=== PATIENT | male | born 1995 | race Caucasian/White ===

== ENCOUNTER 2018-03-04 16:05 | Emergency (ER) | payer OTHER ==
[2018-03-04 16:16] VITALS: BP 120/78; O2SAT 99
[2018-03-04] MEDS ORDERED: TORAdol 30 mg Injection IM ONE (16:25)
[2018-03-04] MEDS ORDERED: Cyclobenzaprine 10 MG PO ONE (16:26)
[2018-03-04] MEDS ORDERED: Cyclobenzaprine 10 MG ONE (16:28)
[2018-03-04] MEDS ORDERED: TORAdol 30 mg Injection ONE (16:28)
--- NOTE | 2018-03-04 16:28 | ERPHSYRPT ---
- History of Present Illness Time Seen by Provider: 03/04/18 16:20 Source: patient Exam Limitations: no limitations Patient Subjective Stated Complaint: Lower back pain x2 weeks, unknown injury. Lower back at midline Triage Nursing Assessment: Pt presents to the ED with complaints of mid lower back pain, worse with movement. Pt states unknown injury but states it is worse with movement. No other complaints noted, no distress noted, skin pwd. A&O x4. Physician History: 22 y/o male comes to the ER with complaints of lower back pain that started 2 weeks ago. 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 Pt describes the pain as sharp, intermittent, as high as 6/10 with movement and pt has not taken any pain meds. No leg weakness, urinary/bowel incontinence or trauma to the back. Timing/Duration: week(s) Method of Injury: twisted, turning Quality: sharp Back Pain Location: lumbar spine Severity of Pain-Max: moderate Severity of Pain-Current: moderate Modifying Factors: Improves With: nothing Associated Symptoms: denies symptoms Previous symptoms: no prior history Allergies/Adverse Reactions: No Known Drug Allergies Allergy (Unverified 03/04/18 16:17) Hx Tetanus, Diphtheria Vaccination/Date Given: No Hx Influenza Vaccination/Date Given: No Hx Pneumococcal Vaccination/Date Given: No Immunizations Up to Date: No - Review of Systems Constitutional: No Fever, No Chills Eyes: No Symptoms Ears, Nose, & Throat: No Symptoms Respiratory: No Cough, No Dyspnea Cardiac: No Chest Pain, No Edema, No Syncope Abdominal/Gastrointestinal: No Abdominal Pain, No Nausea, No Vomiting, No Diarrhea Genitourinary Symptoms: No Dysuria, No Frequency, No Hematuria Musculoskeletal: Back Pain, No Neck Pain Skin: No Rash Neurological: No Dizziness, No Focal Weakness, No Sensory Changes Psychological: No Symptoms Endocrine: No Symptoms All Other Systems: Reviewed and Negative - Past Medical History Pertinent Past Medical History: No Neurological History: No Pertinent History ENT History: No Pertinent History Cardiac History: No Pertinent History Respiratory History: No Pertinent History Endocrine Medical History: No Pertinent History Musculoskeletal History: No Pertinent History GI Medical History: No Pertinent History History: No Pertinent History Psycho-Social History: No Pertinent History Male Reproductive Disorders: No Pertinent History - Past Surgical History Past Surgical History: No Neuro Surgical History: No Pertinent History Cardiac: No Pertinent History Respiratory: No Pertinent History Gastrointestinal: No Pertinent History Genitourinary: No Pertinent History Musculoskeletal: No Pertinent History Male Surgical History: No Pertinent History - Social History Smoking Status: Never smoker Exposure to second hand smoke: No Drug Use: none Patient Lives Alone: No - Nursing Vital Signs Nursing Vital Signs: Initial Vital Signs Temperature 97.7 F 03/04/18 16:12 Pulse Rate 84 03/04/18 16:12 Respiratory Rate 18 03/04/18 16:12 Blood Pressure 120/78 03/04/18 16:12 O2 Sat by Pulse Oximetry 99 03/04/18 16:12 Pain Scale Pain Intensity 2 - Physical Exam General Appearance: no apparent distress, alert Eye Exam: PERRL/EOMI, eyes nml inspection Neck Exam: normal inspection, non-tender, supple, full range of motion, No meningismus, No midline tenderness Respiratory Exam: normal breath sounds, lungs clear, No respiratory distress Cardiovascular Exam: regular rate/rhythm, normal heart sounds Gastrointestinal Exam: soft, No tenderness, No mass Back Exam: normal inspection, decreased range of motion, muscle spasm, point tenderness, No CVA tenderness, No vertebral tenderness Extremity Exam: normal inspection, normal range of motion, No calf tenderness, No pedal edema Neurologic Exam: alert, oriented x 3, cooperative, 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, normal mood/affect, nml station & gait, sensation nml, No motor deficits Skin Exam: normal color, warm, dry, No rash SpO2: 99 Oxygen Delivery: Room Air - Course Nursing assessment & vital signs reviewed: Yes Ordered Tests: Medication Summary Discontinued Medications Generic Name Dose Route Start Last Admin Trade Name Breanna PRN Reason Stop Dose Admin Cyclobenzaprine HCl 10 mg 03/04/18 16:26 03/04/18 16:30 Cyclobenzaprine 10 Mg PO 03/04/18 16:27 10 mg STAT ONE Administration Cyclobenzaprine HCl Confirm 03/04/18 16:28 Cyclobenzaprine 10 Mg Administered 03/04/18 16:29 Dose 10 mg .ROUTE .STK-MED ONE Ketorolac Tromethamine 60 mg 03/04/18 16:25 03/04/18 16:30 Toradol 30 Mg Injection IM 03/04/18 16:26 60 mg STAT ONE Administration Ketorolac Tromethamine Confirm 03/04/18 16:28 Toradol 30 Mg Injection Administered 03/04/18 16:29 Dose 60 mg .ROUTE .STK-MED ONE - Progress Progress: unchanged Progress Note: 03/04/18 16:29 Pt will be given a dose of toradol 60mg IM X 1 dose and one dose of flexeril 10mg PO X 1 dose. - Departure Time of Disposition: 16:29 Departure Disposition: Home Clinical Impression: Back strain Qualifiers: Encounter type: initial encounter Qualified Code(s): S39.012A - Strain of muscle, fascia and tendon of lower back, initial encounter Condition: Stable Critical Care Time: No Instructions: Low Back Pain (DC) Additional Instructions: Return to the ER if you should continue to have lower back pain, leg weakness or have difficulty walking. Prescriptions: Cyclobenzaprine HCl [Flexeril] 5 mg PO TID PRN #15 tablet PRN Reason: Muscle Spasms Ketorolac Tromethamine [Toradol] 10 mg PO QID PRN #20 tablet PRN Reason: Pain
[2018-03-04 16:57] VITALS: PULSE 77
== END 2018-03-04 16:56 | disposition home or self-care (01) ==
LOC: ED 16:05
DX: S39.012A Strain of muscle, fascia and tendon of lower back, initial encounter (principal); M54.5 Low back pain
CPT/HCPCS: 96372; 96374; 99283; 99284; J1885; A9270-GY

== ENCOUNTER 2019-08-24 08:42 | Emergency (ER) | payer BC, OTHER ==
--- NOTE | 2019-08-24 08:59 | ERPHSYRPT ---
- History of Present Illness Time Seen by Provider: 08/24/19 08:59 Historian: patient Exam Limitations: no limitations Physician History: 24 y/o white male presents with several hour h/o not feeling well including several episodes of diarrhea and vomiting. no other individuals with similar sx. no cough, no soa, no cp. abd wall pain only. never had anything like this before. no fever. no new meds. denies alcohol ingestion Timing/Duration: hour(s) (several) Activities at Onset: none Quality: aching Abdominal Pain Onset Location: generalized abdomen (mild) Severity of Pain-Max: moderate Severity of Pain-Current: mild Modifying Factors: Improves With: vomiting Associated Symptoms: diarrhea, nausea, vomiting, weakness (now) Previous symptoms: no prior history Allergies/Adverse Reactions: No Known Drug Allergies Allergy (Verified 08/24/19 09:02) Hx Tetanus, Diphtheria Vaccination/Date Given: No Hx Influenza Vaccination/Date Given: No Hx Pneumococcal Vaccination/Date Given: No - Review of Systems Constitutional: Weakness Eyes: No Symptoms Ears, Nose, & Throat: No Symptoms Respiratory: No Symptoms Cardiac: No Symptoms Abdominal/Gastrointestinal: Nausea, Vomiting, Diarrhea Genitourinary Symptoms: No Symptoms Musculoskeletal: No Symptoms Neurological: No Symptoms Psychological: No Symptoms Endocrine: No Symptoms Hematologic/Lymphatic: No Symptoms Immunological/Allergic: No Symptoms All Other Systems: Reviewed and Negative - Past Medical History Pertinent Past Medical History: No Neurological History: No Pertinent History ENT History: No Pertinent History Cardiac History: No Pertinent History Respiratory History: No Pertinent History Endocrine Medical History: No Pertinent History Musculoskeletal History: No Pertinent History GI Medical History: No Pertinent History History: No Pertinent History Psycho-Social History: No Pertinent History Male Reproductive Disorders: No Pertinent History - Past Surgical History Past Surgical History: No Neuro Surgical History: No Pertinent History Cardiac: No Pertinent History Respiratory: No Pertinent History Gastrointestinal: No Pertinent History Genitourinary: No Pertinent History Musculoskeletal: No Pertinent History Male Surgical History: No Pertinent History - Social History Smoking Status: Never smoker Exposure to second hand smoke: No Drug Use: none Patient Lives Alone: No - Nursing Vital Signs Nursing Vital Signs: Initial Vital Signs Temperature 98.4 F 08/24/19 08:49 Pulse Rate 99 H 08/24/19 08:49 Respiratory Rate 20 08/24/19 08:49 Blood Pressure 115/77 08/24/19 08:49 O2 Sat by Pulse Oximetry 96 08/24/19 08:49 Pain Scale Pain Intensity 3 - Physical Exam General Appearance: mild distress, alert, anxiety Eye Exam: PERRL/EOMI, eyes nml inspection Ears, Nose, Throat Exam: dry mucous membranes Neck Exam: normal inspection, non-tender, supple, full range of motion Respiratory Exam: normal breath sounds, lungs clear, airway intact, No chest tenderness, No respiratory distress Cardiovascular Exam: regular rate/rhythm, normal heart sounds, normal peripheral pulses Gastrointestinal/Abdomen Exam: soft, normal bowel sounds, No tenderness, No distention, No guarding Rectal Exam: not done Back Exam: normal inspection, normal range of motion, No CVA tenderness, No vertebral tenderness Extremity Exam: normal inspection, normal range of motion, pelvis stable Neurologic Exam: alert, oriented x 3, cooperative, 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 Skin Exam: normal color, warm, dry Lymphatic Exam: No adenopathy SpO2 Interpretation: normal O2 Delivery: Room Air - Course Nursing assessment & vital signs reviewed: Yes Ordered Tests: Active Orders 24 hr Category Date Time Status IV Insertion STAT Care 08/24/19 09:24 Active AMYLASE Stat Lab 08/24/19 09:37 Completed CBC W DIFF Stat Lab 08/24/19 09:37 Completed CMP Stat Lab 08/24/19 09:37 Completed LIPASE Stat Lab 08/24/19 09:37 Completed Lactic Acid Stat Lab 08/24/19 09:24 Completed UA W/RFX UR CULTURE Stat Lab 08/24/19 10:20 Completed Medication Summary Generic Name Dose Route Start Last Admin Trade Name Freq PRN Reason Stop Dose Admin Sodium Chloride 1,000 mls @ 999 mls/hr 08/24/19 10:08 Sodium Chloride 0.9% 1000 Ml IV 08/24/19 11:08 .Q1H1M STA Discontinued Medications Generic Name Dose Route Start Last Admin Trade Name Freq PRN Reason Stop Dose Admin Famotidine 20 mg 08/24/19 09:24 08/24/19 09:32 Pepcid 20 Mg Vial IV 08/24/19 09:25 20 mg STAT ONE Administration Famotidine Confirm 08/24/19 09:29 Pepcid 20 Mg Vial Administered 08/24/19 09:30 Dose 20 mg IV .STK-MED ONE Sodium Chloride 1,000 mls @ 999 mls/hr 08/24/19 09:24 08/24/19 09:32 Sodium Chloride 0.9% 1000 Ml IV 08/24/19 10:24 999 mls/hr .Q1H1M STA Administration Sodium Chloride Confirm 08/24/19 09:29 Sodium Chloride 0.9% 1000 Ml Administered 08/24/19 09:30 Dose 1,000 mls @ ud .ROUTE .STK-MED ONE Sodium Chloride Confirm 08/24/19 10:46 Sodium Chloride 0.9% 1000 Ml Administered 08/24/19 10:47 Dose 1,000 mls @ ud .ROUTE .STK-MED ONE Ondansetron HCl 4 mg 08/24/19 09:24 08/24/19 09:32 Zofran 4 Mg/2 Ml Vial IV 08/24/19 09:25 4 mg STAT ONE Administration Ondansetron HCl Confirm 08/24/19 09:29 Zofran 4 Mg/2 Ml Vial Administered 08/24/19 09:30 Dose 4 mg .ROUTE .STK-MED ONE Lab/Rad Data: Laboratory Result Diagrams 08/24/19 09:37 08/24/19 09:37 Laboratory Results 08/24/19 08/24/19 08/24/19 Range/Units 10:20 09:37 09:37 WBC (4.0-10.5) K/mm3 RBC (4.1-5.6) M/mm3 Hgb (12.5-18.0) gm/dl Hct (42-50) % MCV (78-100) fl MCH (26-32) pg MCHC (32-36) g/dl RDW (11.5-14.0) % Plt Count (150-450) K/mm3 MPV (6-9.5) fl Gran % (36.0-66.0) % Eos # (Auto) (0-0.5) Absolute Lymphs (auto) (1.0-4.6) Absolute Monos (auto) (0.0-1.3) Lymphocytes % (24.0-44.0) % Monocytes % (0.0-12.0) % Eosinophils % (0.00-5.0) % Basophils % (0.0-0.4) % Absolute Granulocytes (1.4-6.9) Basophils # (0-0.4) Sodium 143 (137-145) mmol/L Potassium 4.1 (3.5-5.1) mmol/L Chloride 101 (98-107) mmol/L Carbon Dioxide 28 (22-30) mmol/L Anion Gap 18.3 H (5-15) MEQ/L BUN 13 (9-20) mg/dL Creatinine 0.80 (0.66-1.25) mg/dL Estimated GFR > 60.0 ML/MIN Glucose 113 H (74-106) mg/dL Lactic Acid (0.4-2.0) Calcium 10.0 (8.4-10.2) mg/dL Total Bilirubin 1.90 H (0.2-1.3) mg/dL AST 24 (17-59) U/L ALT 20 (0-50) U/L Alkaline Phosphatase 64 (38-126) U/L Serum Total Protein 8.7 H (6.3-8.2) g/dL Albumin 5.1 H (3.5-5.0) g/dL Amylase 64 (30-110) U/L Lipase 46 (23-300) U/L Urine Color YELLOW (YELLOW) Urine Appearance CLEAR (CLEAR) Urine pH 8.0 (5-6) Ur Specific [place] 1.024 (1.005-1.025) Urine Protein NEGATIVE (Negative) Urine Ketones NEGATIVE (NEGATIVE) Urine Blood NEGATIVE (0-5) Max/ul Urine Nitrite NEGATIVE (NEGATIVE) Urine Bilirubin NEGATIVE (NEGATIVE) Urine Urobilinogen NEGATIVE (0-1) mg/dL Ur Leukocyte Esterase NEGATIVE (NEGATIVE) Urine WBC (Auto) 3-5 (0-5) /HPF Urine RBC (Auto) 0-2 (0-2) /HPF U Epithel Cells (Auto) RARE (FEW) /HPF Urine Bacteria (Auto) RARE (NEGATIVE) /HPF Other Casts (Auto) >50 (NEGATIVE) /LPF Urine Mucus (Auto) SLIGHT (NEGATIVE) /HPF Urine Culture Reflexed NO (NO) Urine Glucose NEGATIVE (NEGATIVE) mg/dL Influenza Type A Ag NEGATIVE (NEGATIVE) Influenza Type B Ag NEGATIVE (NEGATIVE) RSV (PCR) NEGATIVE (Negative) 08/24/19 08/24/19 Range/Units 09:37 09:24 WBC 8.4 (4.0-10.5) K/mm3 RBC 5.65 H (4.1-5.6) M/mm3 Hgb 17.3 (12.5-18.0) gm/dl Hct 49.5 (42-50) % MCV 87.6 (78-100) fl MCH 30.6 (26-32) pg MCHC 34.9 (32-36) g/dl RDW 12.9 (11.5-14.0) % Plt Count 262 (150-450) K/mm3 MPV 9.5 (6-9.5) fl Gran % 83.4 H (36.0-66.0) % Eos # (Auto) 0.04 (0-0.5) Absolute Lymphs (auto) 0.70 L (1.0-4.6) Absolute Monos (auto) 0.65 (0.0-1.3) Lymphocytes % 8.3 L (24.0-44.0) % Monocytes % 7.7 (0.0-12.0) % Eosinophils % 0.5 (0.00-5.0) % Basophils % 0.1 (0.0-0.4) % Absolute Granulocytes 7.02 H (1.4-6.9) Basophils # 0.01 (0-0.4) Sodium (137-145) mmol/L Potassium (3.5-5.1) mmol/L Chloride (98-107) mmol/L Carbon Dioxide (22-30) mmol/L Anion Gap (5-15) MEQ/L BUN (9-20) mg/dL Creatinine (0.66-1.25) mg/dL Estimated GFR ML/MIN Glucose (74-106) mg/dL Lactic Acid 1.7 (0.4-2.0) Calcium (8.4-10.2) mg/dL Total Bilirubin (0.2-1.3) mg/dL AST (17-59) U/L ALT (0-50) U/L Alkaline Phosphatase (38-126) U/L Serum Total Protein (6.3-8.2) g/dL Albumin (3.5-5.0) g/dL Amylase (30-110) U/L Lipase (23-300) U/L Urine Color (YELLOW) Urine Appearance (CLEAR) Urine pH (5-6) Ur Specific [place] (1.005-1.025) Urine Protein (Negative) Urine Ketones (NEGATIVE) Urine Blood (0-5) Max/ul Urine Nitrite (NEGATIVE) Urine Bilirubin (NEGATIVE) Urine Urobilinogen (0-1) mg/dL Ur Leukocyte Esterase (NEGATIVE) Urine WBC (Auto) (0-5) /HPF Urine RBC (Auto) (0-2) /HPF U Epithel Cells (Auto) (FEW) /HPF Urine Bacteria (Auto) (NEGATIVE) /HPF Other Casts (Auto) (NEGATIVE) /LPF Urine Mucus (Auto) (NEGATIVE) /HPF Urine Culture Reflexed (NO) Urine Glucose (NEGATIVE) mg/dL Influenza Type A Ag (NEGATIVE) Influenza Type B Ag (NEGATIVE) RSV (PCR) (Negative) - Progress Progress: improved, re-examined Progress Note: 08/24/19 11:01 pt states he is feeling much better. no longer has nausea and no longer has abd pain. Counseled pt/family regarding: lab results, diagnosis, need for follow-up - Departure Departure Disposition: Home Clinical Impression: Vomiting and diarrhea Condition: Stable Critical Care Time: No Referrals: DOCTOR,NO FAMILY [Primary Care Provider] - Additional Instructions: drink plenty of clear liquids. advance diet slowly over 24 hours. follow up with primary doctor or return to ED for recurrent symptoms Forms: Work/School Release Form Prescriptions: Ondansetron HCl [Zofran] 4 mg PO TID PRN #10 tablet PRN Reason: Nausea/Vomiting Ranitidine HCl [Zantac] 150 mg PO BID 5 Days #10 tablet
[2019-08-24] MEDS ORDERED: Pepcid 20 MG VIAL IV ONE ×2 (09:24→09:29)
[2019-08-24] MEDS ORDERED: Zofran 4 MG/2 ML VIAL IV ONE (09:24)
[2019-08-24] MEDS ORDERED: Sodium Chloride 0.9% 1000 ML 1,000 ML IV STA ×2 (09:24→10:08)
[2019-08-24] MEDS ORDERED: Zofran 4 MG/2 ML VIAL ONE (09:29)
[2019-08-24] MEDS ORDERED: Sodium Chloride 0.9% 1000 ML 1,000 ML ONE ×2 (09:29→10:46)
[2019-08-24 09:40] LABS: Absolute Neutrophil Ct (ANC) 7.02 (1.4-6.9); BASOPHIL % 0.1 % (0.0-0.4); Basophil (Absolute #) 0.01 (0-0.4); Eosinophil % 0.5 % (0.00-5.0); Eosinophil (Absolute #) 0.04 (0-0.5); Hematocrit 49.5 % (42-50); Hemoglobin 17.3 gm/dl (12.5-18.0); Lymphocytes % 8.3 % (24.0-44.0); Mean Cell Volume 87.6 fl (78-100); Mean Corpuscular Hemoglobin 30.6 pg (26-32); Mean Corpuscular Hgb Concent. 34.9 g/dl (32-36); Mean Platelet Volume 9.5 fl (6-9.5); Monocyte (Absolute #) 0.65 (0.0-1.3); Monocytes % 7.7 % (0.0-12.0); Neutrophil % 83.4 % (36.0-66.0); Platelet Count 262 K/mm3 (150-450); Red Blood Count 5.65 M/mm3 (4.1-5.6); Red Cell Distribution Width 12.9 % (11.5-14.0); White Blood Count 8.4 K/mm3 (4.0-10.5)
[2019-08-24 09:51] LABS: ALBUMIN 5.1 g/dL (3.5-5.0); ALKALINE PHOSPHATASE 64 U/L (38-126); AMYLASE 64 U/L (30-110); ANION GAP 18.3 MEQ/L (5-15); BLOOD UREA NITROGEN 13 mg/dL (9-20); CHLORIDE 101 mmol/L (98-107); Carbon Dioxide 28 mmol/L (22-30); Glucose 113 mg/dL (74-106); LIPASE 46 U/L (23-300); Potassium 4.1 mmol/L (3.5-5.1); SGOT/AST 24 U/L (17-59); SGPT/ALT 20 U/L (0-50); SODIUM 143 mmol/L (137-145); Total Protein 8.7 g/dL (6.3-8.2)
[2019-08-24 10:48] LABS: INFLUENZA A NEGATIVE (NEGATIVE); INFLUENZA B NEGATIVE (NEGATIVE); RESPIRATORY SYNCTIAL VIRUS NEGATIVE (Negative)
[2019-08-24 10:58] LABS: Appearance CLEAR (CLEAR); Bilirubin NEGATIVE (NEGATIVE); Blood NEGATIVE Ery/ul (0-5); Glucose NEGATIVE (NEGATIVE); Ketones NEGATIVE (NEGATIVE); Leukocyte Esterase NEGATIVE (NEGATIVE); Mucus SLIGHT /HPF (NEGATIVE); Nitrite NEGATIVE (NEGATIVE); Protein,Urine Dip NEGATIVE (Negative); Specific Gravity 1.024 (1.005-1.025); Urobilinogen NEGATIVE mg/dL (0-1)
[2019-08-24 10:59] LABS: RBC 0-2 /HPF (0-2)
[2019-08-24 11:00] LABS: Bacteria RARE /HPF (NEGATIVE); Epithelial Cells RARE /HPF (FEW)
[2019-08-24 11:11] VITALS: BP 110/67; PULSE 98; O2SAT 98
== END 2019-08-24 12:14 | disposition home or self-care (01) ==
LOC: ED 08:42
DX: R11.2 Nausea with vomiting, unspecified (principal); R19.7 Diarrhea, unspecified
CPT/HCPCS: 36000; 36415; 80053; 81001; 82150; 83605; 83690; 85025; 87631; 96360; 96361; 96374; 96375; 99284; J2405